=== PATIENT | male | born 1955 | race Caucasian/White ===

== ENCOUNTER 2021-06-30 21:03 | Inpatient (IN) | payer OTHER, SELFPAY ==
[~2021-06-30] VITALS: Ht 172.7 cm; Wt 66.7 kg
--- NOTE | 2021-06-30 21:13 | NUR ---
MOVED TO ED 10 BY EMS. PER EMS PATIENT TO BE EVALUATED FOR ABNORMAL LABS AND DECREASED SPO2. PATIENT TRACHE WITH BLOW BY O2 NORMALY. SPO2 ON ARRIVAL 96%. PRESENTS AMS PER FACILITY, RIGHT BKA AND IV/VELASCO IN PLACE.
[2021-06-30 21:44] VITALS: BP 98/36
--- NOTE | 2021-06-30 21:59 | NUR ---
SPOKE WITH GITA REDMOND AT [facility], STATES UNABLE TO OBTAIN COVID VACCINE STATUS.
--- NOTE | 2021-06-30 22:02 | NUR ---
BRETT AND LABS OBTAINED
[2021-06-30 22:06] LABS: MEAN CORPUSCULAR HEMOGLOBIN 28 pg (27-31); MEAN CORPUSCULAR HGB CONC 32 g/dL (33-37); MEAN CORPUSCULAR VOLUME 87.6 fL (80-94); PLATELET COUNT (AUTO) 228 K/uL (140-450); RED BLOOD CELL COUNT(AUTO) 2.23 MIL/uL (4.20-6.10)
[2021-06-30] MEDS ORDERED: NACL 0.9% 1,000 ML IV SCH (22:15)
[2021-06-30] MEDS ORDERED: cefTRIAXone 1,000 MG in DEXT 5% MINI-BAG PLUS 50 ML IV ONE (22:15)
[2021-06-30 22:20] LABS: ALBUMIN 2.4 g/dL (3.4-5.0); ANION GAP 10.8 (8-16); CARBON DIOXIDE 38.8 mmol/L (21-32); TOTAL BILIRUBIN 0.3 mg/dL (0.0-1.0)
[2021-06-30 22:25] LABS: POTASSIUM 6.6 mmol/L (3.5-5.1)
--- NOTE | 2021-06-30 22:25 | NUR ---
6.6 POTASSIUM 217 BUN REPORTED TO WILIAN BURLESON
[2021-06-30 22:38] LABS: APPEARANCE,URINE SL CLOUDY (CLEAR); BILIRUBIN,URINE NEGATIVE (NEGATIVE); BLOOD, URINE NEGATIVE (NEGATIVE); COLOR,URINE YELLOW (YELLOW); LEUKOCYTE ESTERASE ,URINE 3+ (NEGATIVE); NITRITE, URINE NEGATIVE (NEGATIVE); UGLUCOSE NEGATIVE (NEGATIVE)
--- NOTE | 2021-06-30 22:44 | NUR ---
PATIENT WAS CHANGED AT THIS TIME, STOOL WAS BLACK AND TARRY. ER MD ADVISED TO COLLECT SAMPLE, POSITIVE BLOOD IN STOOL
[2021-06-30] MEDS ORDERED: SODIUM POLYSTYRENE 15 GM/60 ML UDBTL PR ONE (22:45)
[2021-06-30] MEDS ORDERED: SODIUM POLYSTYRENE 15 GM/60 ML UDBTL GT ONE (22:45)
[2021-06-30] MEDS ORDERED: CALCIUM CHLORIDE 10% 1,000 MG in NACL 0.9% 100 ML IV ONE (22:45)
[2021-06-30 22:52] LABS: HEMATOCRIT 19.5 % (36-52); HEMOGLOBIN 6.3 g/dL (12.0-18.0); WHITE BLOOD COUNT (AUTO) 25.3 K/uL (4.8-10.8)
[2021-06-30 22:53] LABS: LYMPHOCYTES % (MANUAL) 7 % (20-46); MONOCYTES % (MANUAL) 3 % (5-12)
[2021-06-30 22:58] LABS: RBC,URINE 0-5 /HPF (0-5); WBC,URINE 20-60 /HPF (0-5)
[2021-06-30] MEDS ORDERED: cefTRIAXone 1,000 MG VIAL ONE (22:58)
--- NOTE | 2021-06-30 23:19 | NUR ---
2300 PLACED PATIENT ON COOL AEROSOL AT 60% FIO2. ABG DRAWN AND RESULTS GIVEN TO
[2021-06-30] MEDS ORDERED: CALCIUM CHLORIDE 10% 100 MG/ML SYR IVP ONE (23:34)
[2021-07-01] MEDS ORDERED: NACL 0.9% 1,000 ML IV SCH (00:10)
--- NOTE | 2021-07-01 01:00 | NUR ---
WILIAN BURLESON ADVISED OF DECREASED HGB. NO NEW ORDERS GIVEN
--- NOTE | 2021-07-01 01:30 | NUR ---
PATIENT CLEARED FOR TRANSPORT TO [facility] [place], PREPPING AT THIS TIME.
--- NOTE | 2021-07-01 01:54 | NUR ---
ADDITIONAL IV TO R HAND 18G OBTAINED
--- NOTE | 2021-07-01 02:10 | NUR ---
0200 TRANSFERRED PATIENT TO [facility] 120B. PATIENT IS ON COOL AEROSOL AT 100% FIO2. SXNED LG AMTS OF THICK YELLOW SECRETIONS. PATIENT HAS SIZE 8 PORTEX TRACH
--- NOTE | 2021-07-01 02:11 | NUR ---
RECEIVED PATIENT TX TO ROOM 120B WITH LEADLIGHTER AND RT AT BEDSIDE. PT IS TRACH TO T PIECE AEROSOL AT FIO2 100% SAT 95% DEEP SUCTION THIN YELLOW SECRETIONS. RESPIRATIONS ARE EQUAL AND UNLABORED. PT IS AWAKE MOUTHING WORDS PT AAOX1 SELF. IV ON R THIBODEAUX 18G LFA 22G AND LFA 18G SL. PAGED DOCTOR TO CLARIFY FLUID ORDER. SKIN NOT INTACT. R BKA. R KNEE SCAB, L FOOT WOUND DRESSING IS C/D/I SACRAL WOUND DRESSING IS C/D/I. ER TOOK PICTURES. VELASCO CATH IN PLACE DRAINING YELLOW CLOUDY URINE. G TUBE IN PLACE. MRSA SWAB OBTAINED AND SENT LAB. VSS. PT WAS CLEANED AND REPOSITION. SAFETY MEASURES ARE IN PLACE. WILL CONTINUE TO MONITOR.
[2021-07-01 02:15] VITALS: BP 113/43
[2021-07-01 04:00] VITALS: BP 117/55
[2021-07-01] MEDS ORDERED: NACL 0.45% 1,000 ML IV SCH (04:20)
--- NOTE | 2021-07-01 04:51 | NUR ---
0445 SXNED PT. LARGE AMTS OF THICK YELLOW SECRETIONS. PATIENT IS STILL ON 100% FIO2 DUE TO LOW SATS AT 90%
--- NOTE | 2021-07-01 05:30 | NUR ---
PATIENT WAS CLEANED AND REPOSITION FOR COMFORT. DEEP SUCTION THICK YELLOW SECRETIONS. PT SAT WELL 90-93% ON FIO2 100% ALL SAFETY MEASURES ARE IN PLACE. WILL CONTINUE TO MONITOR.
[2021-07-01 05:58] LABS: ANION GAP 7.1 (8-16); BASOPHILS % (AUTO) 0.2 % (0.0-2.0); CARBON DIOXIDE 40.4 mmol/L (21-32); CREATININE 1.9 mg/dL (0.6-1.3); EOSINOPHILS % (AUTO) 0.1 % (0.0-4.0); LYMPHOCYTES # (AUTO) 1.7 K/uL (2.0-11.5); LYMPHOCYTES % (AUTO) 7.8 % (20.5-51.1); MEAN CORPUSCULAR HEMOGLOBIN 28 pg (27-31); MEAN CORPUSCULAR HGB CONC 32 g/dL (33-37); MEAN CORPUSCULAR VOLUME 87.8 fL (80-94); MONOCYTES # (AUTO) 0.7 K/uL (0.8-1.0); MONOCYTES % (AUTO) 3.3 % (1.7-9.3); NEUTROPHILS # (AUTO) 18.7 K/uL (1.8-7.7); NEUTROPHILS % (AUTO) 88.6 % (42.2-75.2); PLATELET COUNT (AUTO) 190 K/uL (140-450); POTASSIUM 5.5 mmol/L (3.5-5.1); RED BLOOD CELL COUNT(AUTO) 2.28 MIL/uL (4.20-6.10); RED CELL DISTRIBUTION WIDTH 19.8 % (11.6-13.7); WHITE BLOOD COUNT (AUTO) 21.1 K/uL (4.8-10.8)
[2021-07-01 06:06] LABS: HEMOGLOBIN 6.4 g/dL (12.0-18.0)
--- NOTE | 2021-07-01 06:30 | NUR ---
PAGED DOUGH CUTTER FOR CRITICAL LABS. WAIT CALL BACK
--- NOTE | 2021-07-01 07:24 | NUR ---
GAVE BEDSIDE REPORT TO DAY RN. PT ENDORSED IN STABLE CONDITION.
--- NOTE | 2021-07-01 07:32 | NUR ---
RECEIVED REPORT FROM BRAZER CONTROLLED ATMOSPHERIC FURNACE RN. PT PENDING 1UNIT PRBC'S, NEPHRO CONSULT, AND DIETITIAN CONSULT.
[2021-07-01] MEDS ORDERED: VANCOMYCIN PER PHARMACY MC PRN (07:50)
[2021-07-01] MEDS ORDERED: HYDROcodone/APAP 5/325 MG 1 TAB TAB PO PRN (07:55)
[2021-07-01] MEDS ORDERED: MORPHINE SULFATE 2 MG/ML SYR IVP PRN (07:55)
[2021-07-01] MEDS ORDERED: LORazepam 2 MG/ML VIAL IM/IVP PRN (07:55)
[2021-07-01] MEDS ORDERED: ONDANSETRON 4 MG/2 ML VIAL IM/IVP PRN (07:55)
[2021-07-01] MEDS ORDERED: ZOLPIDEM 5 MG TAB PO PRN (07:55)
[2021-07-01] MEDS ORDERED: ACETAMINOPHEN 325 MG TAB PO PRN (07:55)
[2021-07-01 08:00] VITALS: BP 126/53
[2021-07-01] MEDS ORDERED: MAG SULF 2000 MG/WATER PREMIX 50 ML IV PRN (08:00)
--- NOTE | 2021-07-01 08:22 | NUR ---
PATIENT HAS BEEN SCREENED AND CATEGORIZED HIGH NUTRITION RISK. PATIENT WILL BE SEEN WITHIN 1-2 DAYS OF ADMISSION. 07/01/2021-07/02/[address]
[2021-07-01] MEDS ORDERED: DOCUSATE 100 MG/10 ML UDC PO PRN (08:30)
[2021-07-01] MEDS ORDERED: POTASSIUM CHLORIDE 20% 40 MEQ/15 ML UDC PO PRN (08:30)
--- NOTE | 2021-07-01 09:10 | NUR ---
FiO2 titrated from 1.0 to .60; SpO2 currently at 99%; tolerating well.
[2021-07-01] MEDS: FUROSEMIDE 40 MG/4 ML VIAL IVP SCH (09:31)
[2021-07-01] MEDS: VANCOMYCIN 750 MG in DEXTROSE 5% 250 ML IV SCH (09:51)
[2021-07-01] MEDS ORDERED: SODIUM ZIRCONIUM CYCLOSILICATE 10 GM POWD.PACK PO SCH (10:30)
[2021-07-01] MEDS ORDERED: SODIUM ZIRCONIUM CYCLOSILICATE 10 GM POWD.PACK GT SCH (11:00)
--- NOTE | 2021-07-01 11:11 | NUR ---
DR. HERRING AT BEDSIDE, STARTING PT ON D5 AT 100CC AND DCING 0.45%NS.
[2021-07-01] MEDS: DEXTROSE 5% 1,000 ML IV SCH (11:23)
[2021-07-01 11:40] LABS: PROTHROMBIN TIME 11.1 secs (10.8-13.4)
[2021-07-01 11:55] LABS: MAGNESIUM 3.3 mg/dL (1.8-2.4); PHOSPHORUS 5.5 mg/dL (2.5-4.9); THYROID STIMULATING HORMONE 2.94 uIU/mL (0.34-3.74)
[2021-07-01 12:14] VITALS: BP 118/58
[2021-07-01] MEDS: SODIUM POLYSTYRENE 15 GM/60 ML UDBTL GT SCH ×2 (12:23→16:26)
[2021-07-01] MEDS: PIPERACILLIN/TAZOBACTAM 2.25 GM in DEXTROSE 5% 50 ML IV SCH ×2 (12:24→21:11)
--- NOTE | 2021-07-01 13:13 | NUR ---
PER DIETITIAN RECOMMENDATION; START PT ON VITAL AF AT 20CC. GOAL AT 60CC. WITH Q6 FREE WATER 150CC. MD AWARE AND ORDER PLACED.
[2021-07-01 14:31] LABS: ALBUMIN 2.5 g/dL (3.4-5.0); ANION GAP 15.3 (8-16); CARBON DIOXIDE 34.1 mmol/L (21-32); MAGNESIUM 3.5 mg/dL (1.8-2.4); PHOSPHORUS 5.6 mg/dL (2.5-4.9); POTASSIUM 5.4 mmol/L (3.5-5.1); TOTAL BILIRUBIN 0.3 mg/dL (0.0-1.0)
--- NOTE | 2021-07-01 15:00 | NUR ---
07/01/21 RD INITIAL ASSESSMENT COMPLETED PLEASE REFER TO NUTRITION ASSESSMENT UNDER CARE ACTIVITY FOR ESTIMATED NUTRITIONAL NEEDS. RD RECOMMENDATIONS: 1. IF/WHEN PT IS MEDICALLY STABLE TO START TUBE FEEDING, RECOMMEND VITAL AF 1.2 AT GOAL RATE OF 60 ML/HR. -FREE WATER FLUSH 150 ML Q6H OR PER MD -START AT 20 ML/HR AND ADVANCE TOLERATED 10 ML/HR Q4H TO GOAL RATE OR TOLERATED. -AT GOAL RATE, VITAL AF 1.2 WILL PROVIDE 1728 KCAL AND 108 GM OF PROTEIN, ADEQUATE TO MEET 100% OF ESTIMATED KCAL AND PROTEIN NEEDS 2. RD TO MAKE APPROPRIATE NUTRITION WOUND CARE RECOMMENDATIONS UPON RN OR BILINGUAL OPERATOR ASSESSMENT 3. RD WILL F/U 2-3 DAYS; HIGH RISK MIK MENDEZ RD
--- NOTE | 2021-07-01 15:03 | NUR ---
PT STARTED ON TUBE FEEDING AT 20CC, WILL CONTINUE TO ASSESS RESIDUAL.
[2021-07-01 15:51] LABS: BARBITURATE, URINE NEGATIVE ng/ml (NEG <=200); BENZODIAZEPINE, URINE POSITIVE ng/mL (NEG <=200); CANNABINOID, URINE NEGATIVE ng/mL (NEG <=50); COCAINE, URINE NEGATIVE ng/mL (NEG <=300); OPIATE, URINE NEGATIVE ng/mL (NEG <=2000); PHENCYCLIDINE SCREEN,URINE NEGATIVE ng/mL (NEG <=25)
[2021-07-01 16:00] VITALS: BP 116/60
--- NOTE | 2021-07-01 16:36 | NUR ---
FiO2 TITRATED FROM .60 TO .50; TOLERATING WELL; SpO2 CURRENTLY AT 99%; WILL BE CONTINUOUSLY MONITORED.
--- NOTE | 2021-07-01 17:34 | NUR ---
PER BLOOD BANK PT HAS ANTIBODIES AND NEEDS A REDRAW FOR TYPE AND SCREEN. PRBC'S WON'T BE READY FOR 24 HRS.
--- NOTE | 2021-07-01 19:23 | NUR ---
ENDORSED CARE TO TAX COMPLIANCE MANAGER RN.
--- NOTE | 2021-07-01 19:30 | NUR ---
RECEIVED REPORT FROM MORNING RN. PATIENT RESTING ON BED, TRACHE TO T-PIECE WITH F102 50, O2 SAT AT 99%. ONGOING FEEDING OF VITAL F AT 20 ML/HOUR. D5 NS 1L IV FLUID RUNNING AT 100 ML /HR, IV SITE INTACT AND INFUSING WELL.VELASCO CATHETER INTACT AND DRAINING WELL. WILL CONTINUE TO MONITOR PATIENT.
[2021-07-01 20:00] VITALS: BP 127/62
--- NOTE | 2021-07-01 20:40 | NUR ---
RECEIVED PT TRACH TO VENT WITH A PORTEX 8 ON COOL AEROSOL SETUP AT 12LPM FIO2 50%. NO SIGNS OF RESPIRATORY DISTRESS NOTED AT THIS TIME PT'S CURRENT SATURATION IS 99%. ANTERIOR AUSCULTATION REVEALED BS COARSE CRACKLES THROUGHOUT, RESPIRATIONS UNLABORED, CHEST RISE SYMMETRICAL. SX SMALL YELLOW/RED TINGED THICK SECRETIONS. HOB ELEVATED, VENT PLUGGED INTO RED OUTLET. WILL CONTINUE TO MONITOR.
--- NOTE | 2021-07-01 21:00 | NUR ---
NO RESIDUAL ON GTUBE. FEEDING INCREASE TO 40 ML/HR, FWF AT 150 ML Q6H. WILL RE-ASSESS.
[2021-07-02] VITALS: BP 137/59
[2021-07-02] MEDS: DEXTROSE 5% 1,000 ML IV SCH ×3 (02:27→13:55)
[2021-07-02 04:00] VITALS: BP 140/61
[2021-07-02] MEDS: PIPERACILLIN/TAZOBACTAM 2.25 GM in DEXTROSE 5% 50 ML IV SCH ×3 (04:58→21:00)
--- NOTE | 2021-07-02 07:25 | NUR ---
RECEIVED REPORT FROM ROAD CROSSING GUARD RN FOR CONTINUITY OF CARE.BREATHING IS EVEN AND UNLABORED. WITH TRACH TO T-PIECE SUPPORT. NO DISTRESS NOTED. ALL SAFETY MEASURES IN PLACE. PT IS STABLE.
[2021-07-02 07:36] LABS: BASOPHILS % (AUTO) 0.3 % (0.0-2.0); EOSINOPHILS # (AUTO) 0.1 K/uL (0-0.4); EOSINOPHILS % (AUTO) 0.6 % (0.0-4.0); LYMPHOCYTES # (AUTO) 1.3 K/uL (2.0-11.5); LYMPHOCYTES % (AUTO) 9.5 % (20.5-51.1); MEAN CORPUSCULAR HEMOGLOBIN 28 pg (27-31); MEAN CORPUSCULAR HGB CONC 32 g/dL (33-37); MEAN CORPUSCULAR VOLUME 87.4 fL (80-94); MONOCYTES # (AUTO) 0.7 K/uL (0.8-1.0); MONOCYTES % (AUTO) 5.4 % (1.7-9.3); NEUTROPHILS # (AUTO) 11.6 K/uL (1.8-7.7); NEUTROPHILS % (AUTO) 84.2 % (42.2-75.2); PLATELET COUNT (AUTO) 165 K/uL (140-450); RED BLOOD CELL COUNT(AUTO) 2.14 MIL/uL (4.20-6.10); RED CELL DISTRIBUTION WIDTH 19.9 % (11.6-13.7); WHITE BLOOD COUNT (AUTO) 13.8 K/uL (4.8-10.8)
[2021-07-02 07:39] LABS: ANION GAP 9.1 (8-16); CREATININE 1.7 mg/dL (0.6-1.3); POTASSIUM 4.1 mmol/L (3.5-5.1)
[2021-07-02 07:59] LABS: HEMATOCRIT 18.7 % (36-52); HEMOGLOBIN 6.1 g/dL (12.0-18.0)
[2021-07-02 08:00] VITALS: BP 136/58
[2021-07-02] MEDS: LANSOPRAZOLE 30 MG CAPDR GT SCH (08:14)
[2021-07-02] MEDS: FUROSEMIDE 40 MG/4 ML VIAL IVP SCH (09:00)
[2021-07-02] MEDS: VANCOMYCIN 750 MG in DEXTROSE 5% 250 ML IV SCH (10:06)
[2021-07-02] MEDS ORDERED: SODIUM ZIRCONIUM CYCLOSILICATE 10 GM POWD.PACK GT SCH (10:30)
[2021-07-02 12:00] VITALS: BP 140/63
[2021-07-02 16:00] VITALS: BP 136/60
--- NOTE | 2021-07-02 19:40 | NUR ---
ENDORSED PT TO SEQUINS STRINGER NURSE FOR CONTINUITY OF CARE.
[2021-07-02 20:00] VITALS: BP 133/59
--- NOTE | 2021-07-02 20:11 | NUR ---
RECEIVED PT TRACHED WITH A PORTEX 8 ON COOL AEROSOL SETUP AT 12LPM FIO2 60%. NO SIGNS OF RESPIRATORY DISTRESS NOTED AT THIS TIME PT'S CURRENT SATURATION IS 96%. ANTERIOR AUSCULTATION REVEALED BS COARSE CRACKLES THROUGHOUT, RESPIRATIONS UNLABORED, CHEST RISE SYMMETRICAL. SX SMALL YELLOW THICK SECRETIONS. HOB ELEVATED WILL CONTINUE TO MONITOR.
[2021-07-02 20:46] LABS: ANION GAP 8.2 (8-16); CARBON DIOXIDE 37.8 mmol/L (21-32); CREATININE 1.7 mg/dL (0.6-1.3)
--- NOTE | 2021-07-02 23:10 | NUR ---
CHANGED STERILE WATER, NO SIGNS OF RESPIRATORY DISTRESS NOTED AT THIS TIME PT CURRENTLY ON 60% FIO2 SATING 94%.
--- NOTE | 2021-07-02 23:30 | NUR ---
PATIENT HAS TRACH TO T-PIECE PATIENT NOT ABLE TO SPEAK PATIENT HAS GT-TUBE VITAL 60 HOUR. RECEIVING WATER FLUSH 300C EVERY FOUR HOURS. IVF D5W 150 HOUR. PATIENT HAS F/C DRAINING YELLOW URINE. PATIENT HAS STAGE 3 TO SACRAL. PATIENT HAD BOWEL MOVEMENT TODAY PATIENT SUCTION PRN MOD. SECRETIONS. SAT 93%.
[2021-07-03] VITALS: BP 131/60
[2021-07-03] MEDS: DEXTROSE 5% 1,000 ML IV SCH (02:27)
[2021-07-03 04:00] VITALS: BP 131/60
[2021-07-03] MEDS: PIPERACILLIN/TAZOBACTAM 2.25 GM in DEXTROSE 5% 50 ML IV SCH ×3 (05:00→20:44)
--- NOTE | 2021-07-03 05:26 | NUR ---
NO SIGNS OF RESPIRATORY DISTRESS NOTED AT THIS TIME PT CURRENTLY ON 60% FIO2 SATING 100%. TITRATED FIO2 TO 40% 10LPM COOL AEROSOL PT SATING 95%. WILL CONTINUE TO MONITOR.
[2021-07-03] MEDS: LANSOPRAZOLE 30 MG CAPDR GT SCH (06:24)
[2021-07-03 06:28] LABS: BASOPHILS % (AUTO) 0.4 % (0.0-2.0); EOSINOPHILS # (AUTO) 0.2 K/uL (0-0.4); EOSINOPHILS % (AUTO) 1.7 % (0.0-4.0); LYMPHOCYTES # (AUTO) 1.7 K/uL (2.0-11.5); LYMPHOCYTES % (AUTO) 14.8 % (20.5-51.1); MEAN CORPUSCULAR HEMOGLOBIN 28 pg (27-31); MEAN CORPUSCULAR HGB CONC 32 g/dL (33-37); MEAN CORPUSCULAR VOLUME 88.4 fL (80-94); MONOCYTES # (AUTO) 0.7 K/uL (0.8-1.0); MONOCYTES % (AUTO) 6.2 % (1.7-9.3); NEUTROPHILS # (AUTO) 8.9 K/uL (1.8-7.7); NEUTROPHILS % (AUTO) 76.9 % (42.2-75.2); PLATELET COUNT (AUTO) 142 K/uL (140-450); RED BLOOD CELL COUNT(AUTO) 1.98 MIL/uL (4.20-6.10); RED CELL DISTRIBUTION WIDTH 19.7 % (11.6-13.7); WHITE BLOOD COUNT (AUTO) 11.6 K/uL (4.8-10.8)
[2021-07-03 06:35] LABS: ANION GAP 8.9 (8-16); CARBON DIOXIDE 36.1 mmol/L (21-32); CREATININE 1.6 mg/dL (0.6-1.3)
[2021-07-03 07:35] LABS: MAGNESIUM 2.3 mg/dL (1.8-2.4)
[2021-07-03 07:36] LABS: PHOSPHORUS 3.1 mg/dL (2.5-4.9)
[2021-07-03 07:47] LABS: PHOSPHORUS 3.1 mg/dL (2.5-4.9)
[2021-07-03 07:48] LABS: MAGNESIUM 2.3 mg/dL (1.8-2.4)
[2021-07-03 08:00] VITALS: BP 139/51
[2021-07-03 08:50] LABS: HEMATOCRIT 17.5 % (36-52); HEMOGLOBIN 5.6 g/dL (12.0-18.0)
[2021-07-03] MEDS: VANCOMYCIN 750 MG in DEXTROSE 5% 250 ML IV SCH (09:46)
[2021-07-03] MEDS: FUROSEMIDE 40 MG/4 ML VIAL IVP SCH (09:46)
--- NOTE | 2021-07-03 10:28 | NUR ---
WOUND CARE EVALUATION NOTE: SKIN ASSESSMENT DONE WITH THIS 65 y/O PT. FROM SNF WITH ALOC AND elevated WBC, PMH INCLUDES CHRONIC RESPIRATORY FAILURE, DYSPHAGIA WITH G-TUBE, CHRONIC TRACH, CARDIAC DISORDERS. RIGHT BKA, LEFT FOOT DIGIT AMPUTATIONS AND MULTIPLE PRESSURE INJURIES.PT SKIN DRY , POOR TURGOR, BONY SKIN , SMALL ECCHYMOSES TO UPPER EXTREMITIES. F/C PATENT, INCONTINENT OF BOWEL. POC DISCUSSED WITH PRIMARY RN. COMORBIDITIES RELATED TO DELAY WOUND HEALING AND FURTHER SKIN BREAKS INFECTION, HYPOXEMIC DECREASE TISSUE PERFUSION, MALNUTRITION, DECREASE MOBILITY AND FUNCTIONAL ABILITIES AND HOB ELEVATED THE MAJORITY OF TIMES DUE TO MEDICAL REASONS. INTEGUMENTARY: -LIPS ARE DRY INTACT -RIGHT KNEE PRESSURE INJURY UN-STAGEABLE 2X5.5CM WOUND BED 100% DARK BROWN STABLE SCAB, NO ODOR, RUTH-WOUND SKIN DRY AND INTACT NO PAIN. -LEFT LATERAL FOOT PRESSURE INJURY STAGE 3 WITH 4X1X0.2CM WOUND BED 100% PALE PINK, NO ODOR, MOIST , RUTH-WOUND SKIN NON-BLANCHABLE AND THIN, FURTHER DAMAGE INDICATED. NO PAIN. -LEFT ACHILLES HEEL PRESSURE INJURY STAGE 3 WITH 3X1X0.2CM WOUND BED 100% PALE PINK, NO ODOR, MOIST , RUTH-WOUND SKIN NON-BLANCHABLE AND THIN MERGE WITH HEEL RUTH WOUND SKIN, FURTHER DAMAGE INDICATED. NO PAIN. -LEFT HEEL PRESSURE INJURY STAGE 3 WITH 3X2.5X0.2CM WOUND BED 100% PALE PINK, NO ODOR, MOIST , RUTH-WOUND SKIN NON-BLANCHABLE AND THIN, FURTHER DAMAGE INDICATED. NO PAIN. -SACRAL COCCYX PRESSURE INJURY STAGE 3 WITH 9X4X0.2CM WOUND BED 60% DARK PURPLE/MAROON AND 40 % RED GRANULATING TISSUE, MOIST, MO ODOR, RUTH-WOUND SKIN NON-BLANCHABLE DENUDED SKIN FURTHER DAMAGE INDICATED. NO PAIN. -MOISTURE ASSOCIATED DERMATITIS TO BILATERAL GROINS, SCROTAL AND RUTH-ANAL SKIN MOIST WITH SUPERFICIAL EROSIONS RECOMMENDATIONS: -CLEANSE BILATERAL GROINS, SCROTAL AND RUTH-ANAL WITH MILD SOAP AND WATER, APPLY CALMOSEPTINE CR. BID AND ANNABEL -PAINT RIGHT KNEE WOUND WITH BETADINE SOLUTION BID AND ANNABEL -CLEANSE LEFT HEEL, LEFT ACHILLES AND LEFT LATERAL FOOT WITH NS, PAT DRY, APPLY HYDROCOLLOID DRESSING TO WOUND BED CHANGE 2X/WEEK ON SATURDAY AND SATURDAY AND PRN IF SOILING - APPLY FOAM DRESSING BONY AREAS SUCH SHOULDERS, SCAPULARS, ELBOWS, AND SPIN Q3 DAYS AND PRN IF SOILING -TURN AND REPOSITION PATIENT Q2H, KEEP PT. DRY AND CLEAN -HEEL PROTECTOR TO LEFT HEEL, ELEVATED RIGHT STUMP -KEEP PT. DRY AND CLEAN,USE DRAW SHEET PREVENT SHEARING AND FRICTION -ASSESS AND MONITOR SKIN CONDITION DURING POSITION CHANGE, PLEASE PAY ATTENTION TO RIGHT BUTTOCKS, OFF LOADING WITH PILLOWS -OFFLOAD BILATERAL HEELS BY PLACING PILLOWS UNDER CALVES AT ALL TIMES, UNLESS OTHERWISE CONTRAINDICATED -PRESSURE REDISTRIBUTION SURFACE THERAPY -PLEASE FOLLOW RD RECOMMENDATIONS Addendum: 07/03/21 at 1243 by Cintia Dewitt RN (Grace) ADD: -CLEANSE SACRALCOCCYX WITH NS, PAT DRY, APPLY THERAHONEY GEL TO WOUND BED AND CALMOSEPTINE CR, TO RUTH WOUND SKIN,COVER WITH DRY DRESSING QD AND PRN IF SOILING
--- NOTE | 2021-07-03 11:15 | NUR ---
STARTED BLOOD ADMIN OF 1 UNIT OF PRBC CHECKED WITH RN AND CHECKED VS BEFORE ADMIN. PT BREATHING EVEN AND UNLABORED. NO SIGNS OF DISTRESS NOTED. PT IS STABLE.
[2021-07-03 12:00] VITALS: BP 132/52
[2021-07-03 12:46] LABS: T4 (THYROXINE) 4.1 ug/dL (4.5 - 12.0)
--- NOTE | 2021-07-03 13:45 | NUR ---
BLOOD ADMIN IS FINISHED. 250ML GIVEN 1 UNIT. PT BREATHING EVEN AND UNLABORED. NO SIGNS OF DISTRESS NOTED. PT IS STABLE.
[2021-07-03] MEDS: HYDROCOLLOID DRESSING TP SCH (13:55)
[2021-07-03] MEDS: MENTHOL/ZINC OXIDE 113 GM TUBE TP SCH (13:55)
[2021-07-03] MEDS: THERAHONEY GEL 42.5 GM TP SCH (13:55)
[2021-07-03] MEDS: FOAM DRESSING TP SCH (13:55)
[2021-07-03] MEDS: GAUZE TP SCH (13:55)
[2021-07-03 16:00] VITALS: BP 142/62
--- NOTE | 2021-07-03 19:03 | NUR ---
PT ENDORSED TO BEAN VINER NURSE FOR CONTINUITY OF CARE.
--- NOTE | 2021-07-03 19:30 | NUR ---
RECEIVED BEDSIDE REPORT FROM DAY SHIFT RN FOR CONTINUITY OF CARE. PT IS AWAKE NOT IN ANY DISTRESS. BREATHING RHYTHMIC AND UNLABORED. TRACH TO T-PIECE SATING 97%. FC IN PLACE. IVF RUNNING MD ORDER. FEEDING RUNNING MD ORDER. BED AT THE LOWEST POSITION. HEAD OF BED RAISED. ALL SAFETY MEASURES TAKEN. WILL CONTINUE TO MONITOR THE PT.
--- NOTE | 2021-07-03 19:37 | NUR ---
PT RESTING IN SEMI-FOWLERS ON CA 30% 9L WITH NO DISTRESS NOTED WATER IS FULL WILL CONTINUE TO MONITOR
[2021-07-03 20:00] VITALS: BP 155/62
--- NOTE | 2021-07-03 23:45 | NUR ---
PT IS SLEEPING IN BED COMFORTABLY. PT IS SATING 96% NOT IN ANY DISTRESS. BREATHING RHYTHMIC AND UNLABORED. FEEDING RUNNING MD ORDER. BED AT THE LOWEST POSITION. ALL SAFETY MEASURES TAKEN. WILL CONTINUE TO MONITOR THE PT.
[2021-07-04] VITALS: BP 147/70
[2021-07-04] MEDS: MENTHOL/ZINC OXIDE 113 GM TUBE TP SCH ×2 (01:16→12:24)
--- NOTE | 2021-07-04 03:02 | NUR ---
PT IS SLEEPING IN BED COMFORTABLY. PT IS SATING 97% NOT IN ANY DISTRESS. BREATHING RHYTHMIC AND UNLABORED. FEEDING RUNNING MD ORDER. BED AT THE LOWEST POSITION. ALL SAFETY MEASURES TAKEN. WILL CONTINUE TO MONITOR THE PT.
[2021-07-04 04:00] VITALS: BP 140/73
[2021-07-04] MEDS ORDERED: PIPERACILLIN/TAZOBACTAM 2.25 GM VIAL IV ONE (04:44)
[2021-07-04] MEDS: PIPERACILLIN/TAZOBACTAM 2.25 GM in DEXTROSE 5% 50 ML IV SCH ×3 (05:10→20:59)
--- NOTE | 2021-07-04 05:27 | NUR ---
TRACH AND ORAL CARE PERFORMED CA ALSO TITRATED AND PT TOLERATING WELL
[2021-07-04] MEDS: LANSOPRAZOLE 30 MG CAPDR GT SCH (05:50)
--- NOTE | 2021-07-04 06:00 | NUR ---
ALL DUE MEDS GIVEN. NO ADVERSE REACTION NOTED. WILL CONTINUE TO MONITOR THE PT.
[2021-07-04 06:37] LABS: ANION GAP 12.2 (8-16); CARBON DIOXIDE 32.9 mmol/L (21-32); CREATININE 1.4 mg/dL (0.6-1.3); POTASSIUM 4.1 mmol/L (3.5-5.1)
[2021-07-04 06:43] LABS: MAGNESIUM 2.2 mg/dL (1.8-2.4); PHOSPHORUS 3.3 mg/dL (2.5-4.9)
[2021-07-04 07:07] LABS: BASOPHILS % (AUTO) 0.4 % (0.0-2.0); EOSINOPHILS # (AUTO) 0.6 K/uL (0-0.4); EOSINOPHILS % (AUTO) 4.7 % (0.0-4.0); HEMATOCRIT 21.5 % (36-52); LYMPHOCYTES # (AUTO) 1.9 K/uL (2.0-11.5); LYMPHOCYTES % (AUTO) 14.8 % (20.5-51.1); MEAN CORPUSCULAR HEMOGLOBIN 29 pg (27-31); MEAN CORPUSCULAR HGB CONC 33 g/dL (33-37); MEAN CORPUSCULAR VOLUME 87.8 fL (80-94); MONOCYTES # (AUTO) 0.6 K/uL (0.8-1.0); MONOCYTES % (AUTO) 5.1 % (1.7-9.3); NEUTROPHILS # (AUTO) 9.5 K/uL (1.8-7.7); PLATELET COUNT (AUTO) 148 K/uL (140-450); RED BLOOD CELL COUNT(AUTO) 2.45 MIL/uL (4.20-6.10); RED CELL DISTRIBUTION WIDTH 18.9 % (11.6-13.7); WHITE BLOOD COUNT (AUTO) 12.7 K/uL (4.8-10.8)
--- NOTE | 2021-07-04 07:30 | NUR ---
ENDORSED PT TO DAY SHIFT RN FOR CONTINUITY OF CARE. PT IS STABLE.
--- NOTE | 2021-07-04 07:31 | NUR ---
RECEIVED REPORT FROM DIVINITY PROFESSOR RN FOR CONTINUITY OF CARE.BREATHING IS EVEN AND UNLABORED. WITH TRACH TO T-PIECE SUPPORT. NO DISTRESS NOTED. ALL SAFETY MEASURES IN PLACE. PT IS STABLE.
[2021-07-04 08:00] VITALS: BP 148/68
[2021-07-04] MEDS: DEXTROSE 5% 1,000 ML IV SCH ×3 (08:00→23:30)
--- NOTE | 2021-07-04 08:15 | NUR ---
MD CHANGED D5W TO 120ML/HR AND ONLY FOR 2000ML TOTAL. BREATHING IS EVEN AND UNLABORED. WITH TRACH TO T-PIECE SUPPORT. NO DISTRESS NOTED. ALL SAFETY MEASURES IN PLACE. PT IS STABLE.
[2021-07-04] MEDS: CHLORHEXADINE GLUC 2% CLOTH TP SCH (09:00)
--- NOTE | 2021-07-04 09:00 | NUR ---
VANCO CAME BACK 18.0. OK TO CONTINUE. BREATHING IS EVEN AND UNLABORED. WITH TRACH TO T-PIECE SUPPORT. NO DISTRESS NOTED. ALL SAFETY MEASURES IN PLACE. PT IS STABLE.
[2021-07-04] MEDS: MUPIROCIN CA NASAL 2% 1GM TUBE NS SCH (10:00)
[2021-07-04] MEDS: FUROSEMIDE 40 MG/4 ML VIAL IVP SCH (10:03)
[2021-07-04 12:00] VITALS: BP 153/69
[2021-07-04] MEDS ORDERED: VANCOMYCIN 750 MG in DEXTROSE 5% 250 ML IV SCH (12:00)
--- NOTE | 2021-07-04 12:00 | NUR ---
BREATHING IS EVEN AND UNLABORED. WITH TRACH TO T-PIECE SUPPORT. NO DISTRESS NOTED. ALL SAFETY MEASURES IN PLACE. PT IS STABLE.
[2021-07-04] MEDS: THERAHONEY GEL 42.5 GM TP SCH (12:24)
[2021-07-04] MEDS: GAUZE TP SCH (12:24)
--- NOTE | 2021-07-04 15:02 | NUR ---
DC PLANNING: THE [place] [facility] [place] INCREASED O2 DEMAND. H/O TRACH/PEG, ADMITTED FOR ALOC, UTI, HYPERKALEMIA AND HYPERNATREMIA. TIM RECEIVED A VM FROM MONIKA FROM [facility] STATING THAT THE PATIENTS DAUGHTER HAD SIGNED CONSENTS AND ASKING FOR A CALL BACK. TIM THEN SPOKE WITH THE PATIENTS DAUGHTER AUGUST BY PHONE. SHE STATED THAT THE PATIENT HAD BEEN LIVING WITH HER BUT THEN WENT TO [facility] FOR 3 WEEKS FOR IV ABX. ALSO STATES HE HAS A HISTORY OF JUD, DM, CHF AND EMPHYSEMA AND THAT THAT HE WAS ON HOSPICE LAST YEAR BUT REVOKED BECAUSE HE WANTED TO PROCEED WITH A CARDIAC INTERVENTION. THE PATIENT THEN WENT TO [facility] AND WAS THERE FOR THREE MONTHS AND WAS TRACHED LAST MARCH. HE HAS A LEFT FOOT AMPUTATION AND RIGHT BKA. HIS DAUGHTER STATES THAT SHE WANTS HIM TO DISCHARGE HOME WITH HER AND THAT SHE LIVES IN A HOUSE WITH HER AND 16 YEAR OLD DAUGHTER. SHE HAS DONE SOME SUCTIONING FOR THE PATIENT BUT HAS PRESENTATION SPECIALIST WITH PEG FEEDINGS. TIM DISCUSSED THE MANY FACETS OF CARE THAT WOULD BE REQUIRED IF THE PATIENT DC'S TO A HOME SETTING, ZACH FEELS THAT SHE HAS ENOUGH FAMILY SUPPORT TO CARE FOR HIM AND THAT THEY WOULD BE ABLE TO LEARN HOW TO MANAGE HIS NEEDS. TIM THEN SPOKE WITH MONIKA AT [facility] TO DISCUSS ARRANGEMENTS. CLINICAL PACKET FAXED TO [facility], TIM ASKED THAT SOMEONE FROM THE AGENCY COME IN PERSON TO EVALUATE THE PATIENT. THEY WILL SEND A NURSE TOMORROW AND WILL CALL CM PRIOR TO VISIT. ALSO DISCUSSED TRAINING THE PATIENTS DAUGHTER AND FAMILY ON MAINTAINING HIS TRACH AND PEG FEEDS WELL USING O2 AND PHYSICAL CARE, MONIKA STATES THAT [facility] WILL PROVIDE ALL THE TRAINING NEEDED, NOT YET SURE IF THEY WILL USE A [place]ANG[place]OO PUMP OR BOLUS FEEDINGS. TIM WILL CONTINUE TO COORDINATE DC PLANNING WITH [facility] AND THE PATIENTS FAMILY AND WILL FOLLOW FOR NEEDS. Addendum: 07/04/21 at 1516 by Elizabeth Stokes CM Amended: Links added. Addendum: 07/05/21 at 1212 by Elizabeth Stokes CM DC PLANNING: [facility] CAME ON SITE TO ASSESS THE PATIENT, TIM SPOKE WITH VALENTÍN ([phone]) REGARDING DME AND TRAINING NEEDS FOR THE FAMILY. TIM ALSO SPOKE WITH MONIKA AT [facility], THEY ARE ORDERING THE PATIENTS SUPPLIES AND DME TODAY AND WILL HAVE AN RN TRAIN THE PATIENTS FAMILY REGARDING CARE FOR THE TRACH AND PEG. THE PATIENTS DAUGHTER WOULD LIKE PATIENT TO BE DC'D ON SATURDAY THAT IS WHEN SHE IS AVAILABLE, [facility] WILL ARRANGE TRANSPORT FOR SATURDAY MORNING AND WILL CALL CM TO CONFIRM COMPANY AND TIME. CM WILL FOLLOW. Addendum: 07/06/21 at 1237 by Elizabeth Stokes CM DC PLANNING: TIM SPOKE WITH APRIL AT [facility] ([phone]) STATES THAT ALL DME AND SUPPLIES FOR TRACH AND PEG HAVE BEEN DELIVERED TO THE PATIENTS HOUSE. PATIENT WILL BE PICKED UP BY [facility] ([phone]) AT 10:00 AM, CM ENDORSED THIS TO THE PATIENTS RN IGLESIA. TIM ALSO SPOKE WITH THE PATIENTS DAUGHTER AUGUST BY PHONE, CONFIRMED THAT ALL SUPPLIES HAVE BEEN DELIVERED AND THAT SHE HAS NO QUESTIONS OR CONCERNS ABOUT HER FATHERS DISCHARGE TOMORROW. AUGUST STATES THAT SHE IS PREPARED TO START CARE TOMORROW AND THAT AN RN FROM [facility] WILL BE COMING TO PROVIDE TRAINING ON TRACH AND PEG CARE. TIM WILL FOLLOW.
[2021-07-04 16:00] VITALS: BP 150/68
--- NOTE | 2021-07-04 16:00 | NUR ---
CHANGED TUBE FEEDING TO GLUCERNA. SAME RATE. BREATHING IS EVEN AND UNLABORED. WITH TRACH TO T-PIECE SUPPORT. NO DISTRESS NOTED. ALL SAFETY MEASURES IN PLACE. PT IS STABLE.
--- NOTE | 2021-07-04 17:34 | NUR ---
07/04/21 RD FOLLOW UP COMPLETED. PLEASE REFER TO NUTRITION ASSESSMENT UNDER CARE ACTIVITY FOR ESTIMATED NUTRITIONAL NEEDS. 1. RECOMMEND USING GLUCERNA 1.2 AT GOAL RATE OF 60 ML/HR, FWF 300 Q4 HOURS OR PER MD. START AT 20 ML/HR AND ADVANCE TOLERATED Q4H TO GOAL RATE OR TOLERATED. -AT GOAL RATE, GLUCERNA 1.2 WILL PROVIDE 1728 KCAL AND 86 GM OF PROTEIN, ADEQUATE TO MEET 100% OF ESTIMATED KCAL AND 100% OF PROTEIN NEEDS 2. RD TO MAKE APPROPRIATE NUTRITION WOUND CARE RECOMMENDATIONS UPON RN OR DELIMER ASSESSMENT RD TO FOLLOW-UP IN 2-3 DAYS PATIENT IS HIGH RISK. ILSA JAVIER RD
--- NOTE | 2021-07-04 19:24 | NUR ---
ENDORSED TO LOAD PLANNER NURSE FOR CONTINUITY OF CARE. POC DISCUSSED.
--- NOTE | 2021-07-04 19:30 | NUR ---
RECEIVED BEDSIDE REPORT FROM DAY SHIFT RN FOR CONTINUITY OF CARE. PT IS AWAKE NOT IN ANY DISTRESS. BREATHING RHYTHMIC AND UNLABORED. TRACH TO T-PIECE SATING 98%. FC IN PLACE. IVF RUNNING MD ORDER. FEEDING RUNNING MD ORDER. BED AT THE LOWEST POSITION. HEAD OF BED RAISED. ALL SAFETY MEASURES TAKEN. WILL CONTINUE TO MONITOR THE PT.
[2021-07-04 20:00] VITALS: BP 144/66
--- NOTE | 2021-07-04 21:06 | NUR ---
ALL DUE MEDS GIVEN. NO ADVERSE REACTION NOTED. WILL CONTINUE TO MONITOR THE PT.
--- NOTE | 2021-07-04 23:30 | NUR ---
HANGED SECOND BAG OF DEXTROSE 5% IVF AT 120 ML/HR PER MD ORDER.
[2021-07-05] VITALS: BP 142/60
--- NOTE | 2021-07-05 00:50 | NUR ---
PT IS AWAKE IN BED. PT IS NOT IN ANY DISTRESS. BREATHING RHYTHMIC AND UNLABORED SATING AT 97%. IVF RUNNING PER MD ORDER. FEEDING RUNNING PER MD ORDER. BED AT THE LOWEST POSITION. HEAD OF BED RAISED. FC DRAINING CLEAR YELLOW URINE. ALL SAFETY MEASURES TAKEN. WILL CONTINUE TO MONITOR THE PT.
[2021-07-05] MEDS: MENTHOL/ZINC OXIDE 113 GM TUBE TP SCH ×2 (01:10→12:40)
[2021-07-05 04:00] VITALS: BP 152/75
[2021-07-05] MEDS: PIPERACILLIN/TAZOBACTAM 2.25 GM in DEXTROSE 5% 50 ML IV SCH ×3 (05:20→20:59)
--- NOTE | 2021-07-05 05:25 | NUR ---
ALL DUE MEDS GIVEN. NO ADVERSE REACTION NOTED. WILL CONTINUE TO MONITOR THE PT.
[2021-07-05 06:00] LABS: BASOPHILS % (AUTO) 0.3 % (0.0-2.0); EOSINOPHILS # (AUTO) 0.9 K/uL (0-0.4); EOSINOPHILS % (AUTO) 7.3 % (0.0-4.0); HEMATOCRIT 21.8 % (36-52); HEMOGLOBIN 7.2 g/dL (12.0-18.0); LYMPHOCYTES # (AUTO) 1.6 K/uL (2.0-11.5); LYMPHOCYTES % (AUTO) 13.5 % (20.5-51.1); MEAN CORPUSCULAR HEMOGLOBIN 29 pg (27-31); MEAN CORPUSCULAR HGB CONC 33 g/dL (33-37); MEAN CORPUSCULAR VOLUME 87.5 fL (80-94); MONOCYTES # (AUTO) 0.5 K/uL (0.8-1.0); MONOCYTES % (AUTO) 4.6 % (1.7-9.3); NEUTROPHILS # (AUTO) 8.8 K/uL (1.8-7.7); NEUTROPHILS % (AUTO) 74.3 % (42.2-75.2); PLATELET COUNT (AUTO) 134 K/uL (140-450); RED CELL DISTRIBUTION WIDTH 17.9 % (11.6-13.7); WHITE BLOOD COUNT (AUTO) 11.8 K/uL (4.8-10.8)
[2021-07-05 06:41] LABS: PHOSPHORUS 5.2 mg/dL (2.5-4.9)
[2021-07-05 06:42] LABS: ANION GAP 12.1 (8-16); CREATININE 1.3 mg/dL (0.6-1.3); POTASSIUM 4.1 mmol/L (3.5-5.1)
[2021-07-05] MEDS: LANSOPRAZOLE 30 MG CAPDR GT SCH (06:42)
--- NOTE | 2021-07-05 07:21 | NUR ---
ENDORSED PT TO DAY SHIFT RN FOR CONTINUITY OF CARE. PT IS STABLE.
--- NOTE | 2021-07-05 07:22 | NUR ---
RECEIVED REPORT FROM CONTROLS PROJECT ENGINEER RN FOR CONTINUITY OF CARE.BREATHING IS EVEN AND UNLABORED. WITH TRACH TO T-PIECE SUPPORT. IVS ARE INTACT RUNNING D5W. NO DISTRESS NOTED. ALL SAFETY MEASURES IN PLACE. PT IS STABLE.
[2021-07-05 08:00] VITALS: BP 156/66
--- NOTE | 2021-07-05 09:30 | NUR ---
SENIOR ANDROID SOFTWARE ENGINEER CAME BY TO GET INFORMATION FOR PT SINCE PT WILL EVENTUALLY DC TO HOME WITH HOPSICE ON GTUBE FEEDING ANF ON T PIECE. BREATHING IS EVEN AND UNLABORED. WITH TRACH TO T-PIECE SUPPORT. IVS ARE INTACT RUNNING D5W. NO DISTRESS NOTED. ALL SAFETY MEASURES IN PLACE. PT IS STABLE.
[2021-07-05] MEDS: CHLORHEXADINE GLUC 2% CLOTH TP SCH (09:39)
[2021-07-05] MEDS: MUPIROCIN CA NASAL 2% 1GM TUBE NS SCH (09:39)
[2021-07-05] MEDS: FUROSEMIDE 40 MG/4 ML VIAL IVP SCH (09:39)
[2021-07-05] MEDS ORDERED: CALCIUM ACETATE 667 MG TAB PO SCH (10:00)
[2021-07-05 12:00] VITALS: BP 152/62
--- NOTE | 2021-07-05 12:00 | NUR ---
PT SPUTUM CAME BACK WITH PSEUD AURIGINOSA, GOT CALL FROM LAB, INFORMED MD, ID MD WILL FOLLOW UP FOR WHAT ANTIBIOTICS WE CAN GIVE TO PT.PT BREATHING IS EVEN AND UNLABORED. WITH TRACH TO T-PIECE SUPPORT. IVS ARE INTACT RUNNING D5W. NO DISTRESS NOTED. ALL SAFETY MEASURES IN PLACE. PT IS STABLE.
[2021-07-05] MEDS: GAUZE TP SCH (12:40)
[2021-07-05] MEDS: THERAHONEY GEL 42.5 GM TP SCH (12:40)
--- NOTE | 2021-07-05 13:45 | NUR ---
PT BREATHING IS EVEN AND UNLABORED. WITH TRACH TO T-PIECE SUPPORT. IVS ARE INTACT RUNNING D5W. NO DISTRESS NOTED. ALL SAFETY MEASURES IN PLACE. PT IS STABLE.
--- NOTE | 2021-07-05 14:49 | NUR ---
CHANGED G-TUBE FEEDING. PT BREATHING IS EVEN AND UNLABORED. WITH TRACH TO T-PIECE SUPPORT. IVS ARE INTACT RUNNING D5W. NO DISTRESS NOTED. ALL SAFETY MEASURES IN PLACE. PT IS STABLE.
[2021-07-05 16:00] VITALS: BP 152/60
--- NOTE | 2021-07-05 16:12 | NUR ---
PT HAS BEEN CHANGED. HAD A VERY LARGE BM. BM WAS DARK BROWN AND PASTY. PT BREATHING IS EVEN AND UNLABORED. WITH TRACH TO T-PIECE SUPPORT. IVS ARE INTACT RUNNING D5W. NO DISTRESS NOTED. ALL SAFETY MEASURES IN PLACE. PT IS STABLE.
--- NOTE | 2021-07-05 16:27 | NUR ---
07/05/21 RD FOLLOW UP COMPLETED. PLEASE REFER TO NUTRITION ASSESSMENT UNDER CARE ACTIVITY FOR ESTIMATED NUTRITIONAL NEEDS. 1. CONTINUE USING GLUCERNA 1.2 AT GOAL RATE OF 60 ML/HR, FWF 300 Q4 HOURS OR PER MD. START AT 20 ML/HR AND ADVANCE TOLERATED Q4H TO GOAL RATE OR TOLERATED.-AT GOAL RATE, GLUCERNA 1.2 WILL PROVIDE 1728 KCAL AND 86 GM OF PROTEIN, ADEQUATE TO MEET 100% OF ESTIMATED KCAL AND 100% OF PROTEIN NEEDS RD TO FOLLOW-UP IN 2-3 DAYS PATIENT IS HIGH RISK. ILSA JAVIER, RD
--- NOTE | 2021-07-05 19:25 | NUR ---
PT ENDORSED TO PET ADOPTION COUNSELOR NURSE FOR CONTINUITY OF CARE. POC DISCUSSED.
--- NOTE | 2021-07-05 19:30 | NUR ---
RECEIVED REPORT FROM MORNING RN. PATIENT RESTING ON BED, BREATHING EVEN AND UNLABORED WITH TRACHE TO TPIECE. TUBE FEEDING OF GLUCERNA ONGOING AT 60 ML/HR , FWF OF 300 ML Q4H, TOLERATING WELL. VELASCO CATH INTACT AND DRAINING WELL. IV SITE INTACT AND SALINE LOCKED. WILL CONTINUE TO MONITOR AND ASSESS PATIENT.
[2021-07-05 20:00] VITALS: BP 135/64
[2021-07-06] VITALS: BP 136/64
[2021-07-06] MEDS: LEVOFLOXACIN 750 MG/D5W PREMIX 150 ML IV SCH ×2 (00:39→23:31)
[2021-07-06] MEDS: MENTHOL/ZINC OXIDE 113 GM TUBE TP SCH ×2 (01:46→13:00)
[2021-07-06 04:00] VITALS: BP 120/61
[2021-07-06 06:13] LABS: BASOPHILS % (AUTO) 0.5 % (0.0-2.0); EOSINOPHILS # (AUTO) 0.9 K/uL (0-0.4); EOSINOPHILS % (AUTO) 9.8 % (0.0-4.0); LYMPHOCYTES # (AUTO) 1.4 K/uL (2.0-11.5); LYMPHOCYTES % (AUTO) 15.1 % (20.5-51.1); MEAN CORPUSCULAR HEMOGLOBIN 30 pg (27-31); MEAN CORPUSCULAR HGB CONC 34 g/dL (33-37); MONOCYTES # (AUTO) 0.4 K/uL (0.8-1.0); MONOCYTES % (AUTO) 4.4 % (1.7-9.3); NEUTROPHILS # (AUTO) 6.7 K/uL (1.8-7.7); NEUTROPHILS % (AUTO) 70.2 % (42.2-75.2); PLATELET COUNT (AUTO) 128 K/uL (140-450); RED BLOOD CELL COUNT(AUTO) 2.23 MIL/uL (4.20-6.10); RED CELL DISTRIBUTION WIDTH 18.3 % (11.6-13.7); WHITE BLOOD COUNT (AUTO) 9.6 K/uL (4.8-10.8)
[2021-07-06 06:19] LABS: HEMATOCRIT 19.4 % (36-52); HEMOGLOBIN 6.7 g/dL (12.0-18.0)
[2021-07-06] MEDS: LANSOPRAZOLE 30 MG CAPDR GT SCH (06:23)
[2021-07-06 06:29] LABS: ANION GAP 9.3 (8-16); CREATININE 1.2 mg/dL (0.6-1.3); POTASSIUM 4.3 mmol/L (3.5-5.1)
--- NOTE | 2021-07-06 08:06 | NUR ---
RECEIVED REPORT FROM GLASSINE MACHINE TENDER RN. PT IN STABLE CONDITION, VSS. PT HGB 6.7. MD AWARE AND 1UNIT PRBC'S ORDERED. WILL CONTINUE TO MONITOR.
[2021-07-06 08:15] VITALS: BP 138/64
[2021-07-06] MEDS ORDERED: VANCOMYCIN 750 MG in DEXTROSE 5% 250 ML IV SCH (08:30)
[2021-07-06] MEDS: CHLORHEXADINE GLUC 2% CLOTH TP SCH (08:55)
[2021-07-06] MEDS: MUPIROCIN CA NASAL 2% 1GM TUBE NS SCH (08:55)
[2021-07-06] MEDS: FUROSEMIDE 40 MG/4 ML VIAL IVP SCH (08:55)
[2021-07-06] MEDS: HYDROCOLLOID DRESSING TP SCH (09:00)
[2021-07-06] MEDS: FOAM DRESSING TP SCH (09:00)
[2021-07-06 12:00] VITALS: BP 128/60
--- NOTE | 2021-07-06 12:38 | NUR ---
AT BEDSIDE. PT TO BE DISCHARGED ON HOSPICE TOMORROW MORNING AT 10AM VIA AMBULANCE. NEW ORDER TO CANCEL ADMINISTRATION OF PRBC'S BY .
[2021-07-06] MEDS: THERAHONEY GEL 42.5 GM TP SCH (13:00)
[2021-07-06] MEDS: GAUZE TP SCH (13:00)
[2021-07-06 16:27] VITALS: BP 126/64
--- NOTE | 2021-07-06 17:29 | NUR ---
07/06/21 RD FOLLOW UP COMPLETED. PLEASE REFER TO NUTRITION ASSESSMENT UNDER CARE ACTIVITY FOR ESTIMATED NUTRITIONAL NEEDS. 1. CONTINUE USING GLUCERNA 1.2 AT GOAL RATE OF 60 ML/HR, FWF 300 Q4 HOURS OR PER MD. START AT 20 ML/HR AND ADVANCE TOLERATED Q4H TO GOAL RATE OR TOLERATED. -AT GOAL RATE, GLUCERNA 1.2 WILL PROVIDE 1728 KCAL AND 86 GM OF PROTEIN, ADEQUATE TO MEET 100% OF ESTIMATED KCAL AND 100% OF PROTEIN NEEDS 2. RECOMMEND FARHAN BID TO PROMOTE WOUND HEALING. RD TO FOLLOW-UP IN 2-3 DAYS PATIENT IS HIGH RISK. ILSA JAVIER RD
--- NOTE | 2021-07-06 18:43 | NUR ---
PT PENDING DISCHARGE IN AM WITH HOSPICE. PT'S FAMILY AWARE OF POC, QUESTIONS/CONCERNS ANSWERED. WILL ENDORSE CARE TO [employer] PROFESSOR RN.
--- NOTE | 2021-07-06 19:09 | NUR ---
RECEIVED PT TRACHED WITH A PORTEX 8 ON COOL AEROSOL SETUP AT 6LPM FIO2 28%. NO SIGNS OF RESPIRATORY DISTRESS NOTED AT THIS TIME PT'S CURRENT SATURATION IS 100%. ANTERIOR AUSCULTATION REVEALED BS CLEAR THROUGHOUT, RESPIRATIONS UNLABORED, CHEST RISE SYMMETRICAL. SX SMALL YELLOW/RED THICK SECRETIONS. REPOSITIONED PT IN BED, HOB ELEVATED WILL CONTINUE TO MONITOR.
--- NOTE | 2021-07-06 19:22 | NUR ---
RECEIVED PATIENT REPORT FROM AM SHIFT NURSE FOR CONTINUITY OF CARE. PATIENT IN BED AWAKE. BREATHING EVEN AND UNLABORED WITH NO SOB NOTED. NOT IN DISTRESS. WHITE COMMUNICATION BOARD UPDATED. ALL SAFETY MEASURES IN PLACE. CALL LIGHT WITHIN REACH. WILL CONTINUE WITH CURRENT PLAN OF CARE.
[2021-07-06 20:00] VITALS: BP 131/64
--- NOTE | 2021-07-06 21:30 | NUR ---
Patient's Plan of Care was discussed and reviewed with ROUTE SALESMAN AND DRIVER: SHAUNNA TRAVIS
--- NOTE | 2021-07-06 21:54 | NUR ---
ADMINISTERED SCHEDULE MEDICATIONS PER MD ORDER. TOLERATED WELL. NO ASE NOTED. ALL SAFETY MEASURES MAINTAINED. CALL LIGHT WITHIN REACH. WILL CONTINUE TO MONITOR.
--- NOTE | 2021-07-06 23:45 | NUR ---
CHECKED ON PATIENT. PATIENT IS AWAKE AND WATCHING TV. CHEST RISING AND FALLING. SAFETY MEASURES MAINTAINED. CALL LIGHT WITHIN REACH. WILL CONTINUE TO MONITOR.
[2021-07-07] MEDS: MENTHOL/ZINC OXIDE 113 GM TUBE TP SCH (01:02)
--- NOTE | 2021-07-07 01:48 | NUR ---
ROUNDED ON PATIENT. PT ASLEEP. VISIBLE CHEST RISING AND FALLING. NO SOB NOTED. ALL SAFETY MEASURES IN PLACE. CALL LIGHT WITHIN REACH. WILL CONTINUE TO MONITOR.
--- NOTE | 2021-07-07 03:58 | NUR ---
PATIENT ASLEEP. CHEST RISING AND FALLING. CALL LIGHT WITHIN REACH. WILL CONTINUE TO MONITOR.
[2021-07-07 04:00] VITALS: BP 130/62
--- NOTE | 2021-07-07 06:05 | NUR ---
PATIENT IS AWAKE. NOT IN DISTRESS. RESPIRATION EVEN AND UNLABORED. NO SOB NOTED. CALL LIGHT WITHIN REACH. WILL CONTINUE TO MONITOR.
[2021-07-07] MEDS: LANSOPRAZOLE 30 MG CAPDR GT SCH (06:29)
--- NOTE | 2021-07-07 07:28 | NUR ---
ENDORSED PATIENT REPORT TO AM SHIFT NURSE FOR CONTINUITY OF CARE. PATIENT IS STABLE.
[2021-07-07 08:07] VITALS: BP 126/72
[2021-07-07] MEDS: CHLORHEXADINE GLUC 2% CLOTH TP SCH (08:31)
[2021-07-07] MEDS: MUPIROCIN CA NASAL 2% 1GM TUBE NS SCH (08:31)
[2021-07-07] MEDS: FUROSEMIDE 40 MG/4 ML VIAL IVP SCH (08:31)
[2021-07-07 08:33] LABS: ANION GAP 7.6 (8-16); CARBON DIOXIDE 29.2 mmol/L (21-32); CREATININE 1.2 mg/dL (0.6-1.3); POTASSIUM 4.8 mmol/L (3.5-5.1)
[2021-07-07] MEDS ORDERED: MORP2SOL18 IVP (09:19)
[2021-07-07] MEDS ORDERED: ONDA2SOL45 IM/IVP (09:19)
[2021-07-07] MEDS ORDERED: ATI2I IM/IVP (09:19)
[2021-07-07 09:30] VITALS: BP 132/78
[2021-07-07] MEDS ORDERED: VANCOMYCIN 750 MG in NACL 0.9% 250 ML IV SCH (10:00)
--- NOTE | 2021-07-07 11:09 | NUR ---
PT BEING TRANSFERRED HOME WITH HOSPIVE VIA [facility]. PT'S DAUGHTER CALLED AND INFORMED; AGREEABLE WITH POC. IV'S DISCONTINUED.
== END 2021-07-07 11:22 | disposition hospice, home (50) | DRG 871 ==
LOC: MED 21:03 → MTU 07-01 00:28
PROC: 30233N1 Transfusion of Nonautologous Red Blood Cells into Peripheral Vein, Percutaneous Approach (ICD-10-PCS; principal; 2021-07-03)
DX: A41.9 Sepsis, unspecified organism (principal); J96.01 Acute respiratory failure with hypoxia; J69.0 Pneumonitis due to inhalation of food and vomit; N17.0 Acute kidney failure with tubular necrosis; E43 Unspecified severe protein-calorie malnutrition; J96.22 Acute and chronic respiratory failure with hypercapnia; J96.21 Acute and chronic respiratory failure with hypoxia; I50.43 Acute on chronic combined systolic (congestive) and diastolic (congestive) heart failure; E87.0 Hyperosmolality and hypernatremia; N39.0 Urinary tract infection, site not specified; Z99.11 Dependence on respirator [ventilator] status; I13.0 Hypertensive heart and chronic kidney disease with heart failure and stage 1 through stage 4 chronic kidney disease, or unspecified chronic kidney disease; L03.213 Periorbital cellulitis; H70.91 Unspecified mastoiditis, right ear; E11.621 Type 2 diabetes mellitus with foot ulcer; R13.10 Dysphagia, unspecified; I25.10 Atherosclerotic heart disease of native coronary artery without angina pectoris; Z20.822 Contact with and (suspected) exposure to COVID-19; E87.5 Hyperkalemia; R74.01 Elevation of levels of liver transaminase levels; N18.9 Chronic kidney disease, unspecified; E11.22 Type 2 diabetes mellitus with diabetic chronic kidney disease; D63.8 Anemia in other chronic diseases classified elsewhere; E83.52 Hypercalcemia; L97.509 Non-pressure chronic ulcer of other part of unspecified foot with unspecified severity; E11.51 Type 2 diabetes mellitus with diabetic peripheral angiopathy without gangrene; Z93.1 Gastrostomy status; Z89.511 Acquired absence of right leg below knee; Z93.0 Tracheostomy status
CPT/HCPCS: 36415; 36600; 70450; 71045; 76705; 80048; 80053; 80202; 80305; 81001; 82140; 82150; 82272; 82728; 82803; 83036; 83540; 83605; 83690; 83735; 83880; 84100; 84134; 84436; 84443; 84484; 85025; 85610; 85730; 86870; 86886; 86900; 86901; 86920; 87040; 87070; 87081; 87086; 87205; 93005; 96361; 96365; 99285; J0696; J1644; J1940; J1956; J2060; J2543; J3370; J3490; J7030; J7060; P9016; Q0092